=== PATIENT | male | born 1975 | race Caucasian/White ===

== ENCOUNTER 2024-04-20 06:44 | Emergency (ER) | payer OTHER, SELFPAY ==
[2024-04-20 06:45] VITALS: BP 122/80; PULSE 90; RESP 16; TEMP 36.6; O2SAT 97; BMI 21.5
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
== END 2024-04-20 06:56 | disposition home or self-care (01) ==
PROVIDERS: Emergency Provider Emergency Medicine
DX: Z00.8 Encounter for other general examination (principal); V89.2XXA Person injured in unspecified motor-vehicle accident, traffic, initial encounter
CPT/HCPCS: 99281